=== PATIENT | male | born 1960 | race Caucasian/White ===

== ENCOUNTER → 2021-09-08 | Outpatient (CLI) | payer OTHER ==
[~2021-09-08] MED LIST: CATHETER FLUSH 10 ML SYR IV PRN; FAMO-119 PO; HOLD METFORMIN - RECEIVED CONTRAST 20 ML VIAL IV SCH; IOHEXOL 350 MG/ML 100 ML (OMNIPAQUE 350) VIAL IV ONE; NS 100 ML (IVPB) BAG IV ONE
--- NOTE | 2021-09-08 12:44 | Diagnostic Imaging Report ---
PROCEDURE: CT abdomen and pelvis with contrast. TECHNIQUE: Multiple contiguous axial images were obtained through the abdomen and pelvis after administration of intravenous contrast. Auto Exposure Controls were utilized during the CT exam to meet ALARA standards for radiation dose reduction. All CT scans use one or more of the following dose optimizing techniques: automated exposure control, MA and/or KvP adjustment based on patient size and exam type or iterative reconstruction. INDICATION: Abscess. COMPARISON: I have no relevant comparison. FINDINGS: A pigtail catheter is in good position within the central portion of a large loculated gas/fluid collection interlooped within the mid pelvis. It measures about 13 cm transverse by 11 cm AP with a cephalocaudal height of 7.3 cm. Its content is about two/thirds air and one/third fluid. Deep to the supraumbilical abdominal wall, there is a second drain which is associated with a predominant gas collection. At its inferior aspect, there is a trace amount of fluid and bubbles of air. This is interposed between the abdominal wall and adjacent unobstructed mildly thickened small bowel. The estimated fluid volume residual within this collection is probably only 1 to 2 cc and the largely gas-containing locule is 7 cm transverse with a maximal AP thickness of 2 cm. There is an internal/external biliary drainage catheter distally formed in the lumen of the proximal duodenum. Its presence likely allows for air reflux into the gallbladder lumen. The gallbladder wall is non-thickened. There is no significant residual intrahepatic biliary ductal dilatation. No appreciable choledocholithiasis along the course of the stent. The atrophic pancreas appears nonfocal and nonacute. The kidneys are unobstructed. There is an IVC filter below the renal veins without venous thrombus demonstrated. There is some diffuse integumentary and subcutaneous edema. There is some diverticulosis of the sigmoid colon with regional inflammation. It is unclear if this is secondarily inflamed from the adjacent abscess or if there is underlying diverticulitis. Aside from the collections associated with the drains, no other fluid collection is found. There is a trace amount of free fluid in the left upper gutter lateral to the nonfocal spleen. This patient has bibasilar pleural effusions layering dependently to a depth of 5.5 cm with subjacent dependent basilar atelectasis. IMPRESSION: 1. Abdominopelvic gas/fluid collections with internal surgical drains. The cephalad collection has only a minimal amount of residual fluid and is nearly entirely comprised of an air locule. The more caudal is about one/third fluid and two/thirds air with a substantial residual fluid load within that collection present. 2. Sigmoid diverticulosis. There is regional bowel wall thickening and perisigmoidal stranding. It is unclear if there is primary diverticulitis present or if this is secondarily inflamed. No bowel obstruction. 3. Internal/external biliary drainage catheter with no visualized choledocholithiasis or significant bile duct dilatation. 4. Bibasilar pleural effusions and dependent atelectasis without evidence for basilar pleural fluid loculation. 5. Trace free fluid in the left upper quadrant. Dictated by: Dictated on workstation # [id number]
== END ==
LOC: RAD 09:45
PROVIDERS: ATTEND Surgery
DX: Z48.03 Encounter for change or removal of drains (principal); K57.30 Diverticulosis of large intestine without perforation or abscess without bleeding; J90 Pleural effusion, not elsewhere classified
CPT/HCPCS: 74177

== ENCOUNTER 2021-09-11 12:43 | Emergency (ER) | payer OTHER ==
[~2021-09-11] VITALS: Ht 180 cm; Wt 91.0 kg
[2021-09-11] MEDS ORDERED: FAMOTIDINE 20MG/2ML IV (PEPCID) IVP ONE (13:45)
[2021-09-11] MEDS ORDERED: FAMO-119 PO (13:52)
--- NOTE | 2021-09-11 13:52 | ED Integumentary General ---
General Chief Complaint: Allergic Reaction Stated Complaint: HIVES Nursing Triage Note: PT TO ED 4 W/ C/O HIVES ONSET 09/09. DENIES KNOWN IRRITANT. STATES DID HAVE CT W/ CONTRAST MONDAY. PT ALSO REPORTS GETTING IV ZOSYN ET DIFLUCAN DAILY. NO OTHER C/O VOICED. DENIES SOB, TONGUE SWELLING, DIFFICULTY BREATHING AT THIS TIME. Source: patient Exam Limitations: no limitations History of Present Illness Date Seen by Provider: Sep 11, 2021 Allergies and Home Medications Allergies Coded Allergies: No Allergy Information Available (Unverified , 09/08/21) Past Ngtlodj-Iwuerc-Iszvfe Hx Patient Social History Tobacco Use?: No Use of E-Cig and/or Vaping dev: No Substance use?: No Pt feels they are or have been: No Past Medical History Surgery/Hospitalization HX: ABD SURGERY, ULCERATIVE COLITIS, COPD Physical Exam Vital Signs Vital Signs - First Documented 09/11/21 12:47 Temp 36.0 Pulse 119 Resp 20 B/P (MAP) 124/93 (103) O2 Delivery Room Air Capillary Refill : Less Than 3 Seconds Progress/Results/Core Measures Results/Orders My Orders Orders - ALAYNA HOOKER APRN Dexamethasone Injection (Decadron Inje (09/11/21 13:00) Famotidine Injection (Pepcid Injection) (09/11/21 13:45) Medications Given in ED Current Medications Medications Dose Ordered Sig/Elizabeth Route Start Time Stop Time Status Last Admin Dose Admin Dexamethasone Sodium Phosphate 10 mg ONCE ONCE IV 09/11/21 13:00 09/11/21 13:02 DC 09/11/21 13:24 10 MG Vital Signs/I&O 09/11/21 12:47 Temp 36.0 Pulse 119 Resp 20 B/P (MAP) 124/93 (103) O2 Delivery Room Air Blood Pressure Mean: 103 Departure Impression Primary Impression: Urticaria Disposition: SNF Condition: Stable Departure-Patient Inst. Decision time for Depature: 13:48 Referrals: HALLE SANTACRUZ MD (PCP/Family) Primary Care Physician Patient Instructions: Hives Add. Discharge Instructions: Plan: 1. Give Pepcid 20mg by mouth twice daily. 2. Benadryl every 4-6 hours as needed for itching/hives. 3. Keep follow up at on Monday as scheduled. 4. Given one dose of Decadron in ED. Will defer steroid use due to recent taper. 5. Use incentive spirometer every 4 hours. 6. Return for any new, concerning, or worsening symptoms. All discharge instructions reviewed with patient and/or family. Voiced understanding. Scripts Famotidine (Pepcid) 20 Mg Tablet 20 MG PO BID for 14 Days, #7 TAB 0 Refills Prov: ALAYNA HOOKER NEWS PRODUCTION ASSISTANT 09/11/21 ALAYNA HOOKER APRN Sep 11, 2021 13:52
[2021-09-11 14:15] VITALS: BP 121/86
== END 2021-09-11 14:15 ==
LOC: EDUNIT# 12:43 → ER 12:45
DX: L50.9 Urticaria, unspecified (principal)
CPT/HCPCS: 99281

== ENCOUNTER → 2021-10-12 | Outpatient (CLI) | payer OTHER ==
[~2021-10-12] MED LIST changes: -CATHETER FLUSH 10 ML SYR IV PRN; -HOLD METFORMIN - RECEIVED CONTRAST 20 ML VIAL IV SCH; -IOHEXOL 350 MG/ML 100 ML (OMNIPAQUE 350) VIAL IV ONE; -NS 100 ML (IVPB) BAG IV ONE
--- NOTE | 2021-10-12 14:33 | Diagnostic Imaging Report ---
EXAMINATION: CT abdomen and pelvis without contrast. TECHNIQUE: Multiple contiguous axial images were obtained through the abdomen and pelvis without the use of intravenous contrast. All CT scans use one or more of the following dose optimizing techniques: automated exposure control, MA and/or KvP adjustment based on patient size and exam type or iterative reconstruction. HISTORY: History of perforated bowel. COMPARISON: 09/08/2021. FINDINGS: Lung bases: There are bilateral pleural effusions with adjacent atelectasis or consolidation. Solid organs: Diffuse hypoattenuation of the liver which can be seen with hepatic steatosis. Multiple stones are seen within the gallbladder. Air is also seen within the gallbladder. There is no biliary ductal dilation. Pancreas is normal. Spleen is normal. Adrenal glands are normal. The kidneys are normal without visualized calculus or hydronephrosis. Bowel: The stomach and small bowel are normal without obstruction. There is wall thickening and inflammatory stranding seen throughout the colon. The appendix is normal. Peritoneum: A percutaneous drainage catheter is seen within the lower abdomen. Minimal fluid is seen on today's exam without obvious fluid collection. Evaluation is limited secondary to lack of IV or oral contrast. No suspicious lymphadenopathy. Vasculature: Calcification of the aorta without aneurysm. An IVC filter is present. Musculoskeletal: Degenerative changes of the spine without suspicious osseous lesion or compression fracture. Pelvis: The prostate gland is normal. The urinary bladder is normal. IMPRESSION: 1. Decreased fluid within the lower abdomen with percutaneous drainage catheter in place. Evaluation for residual fluid is limited without IV or oral contrast. 2. Diffuse wall thickening and inflammatory stranding of the colon which is concerning for an infectious or inflammatory pancolitis. 3. Hepatic steatosis. 4. Bilateral pleural effusions with adjacent atelectasis or consolidation. Dictated by: Dictated on workstation # [id number]
== END ==
LOC: RAD 13:45
PROVIDERS: ATTEND Surgery
DX: K76.0 Fatty (change of) liver, not elsewhere classified (principal); J90 Pleural effusion, not elsewhere classified; K66.8 Other specified disorders of peritoneum
CPT/HCPCS: 74176

== ENCOUNTER 2021-10-27 10:50 | Emergency (ER) | payer OTHER ==
[~2021-10-27] VITALS: Ht 187 cm; Wt 73.0 kg
[2021-10-27] MEDS ORDERED: NS IV 1000 ML 1,000 ML IV STA (11:18)
[2021-10-27] MEDS ORDERED: PIPERACILLIN SODIUM/TAZOBACTAM 4.5 GM in NS (IVPB) 100 ML IV ONE (11:30)
--- NOTE | 2021-10-27 11:34 | ED Abdominal Pain ---
General Chief Complaint: Abdominal/GI Problems Stated Complaint: ABD PAIN Nursing Triage Note: PT ARRIVED PER EMS FROM [facility], PT HAS HAD NUMEROUS ABD SURGERIES SINCE 06/15. PT HAD DRAIN PULLED FROM ABD ON 10/26, WOUND IS LEAKING BM AT THIS X. PT CO OF PAIN @ 03/05. Source of Information: Patient Exam Limitations: No Limitations History of Present Illness Date Seen by Provider: October 27, 2021 Time Seen by Provider: 11:30 Initial Comments Patient is a 61-year-old male with a history of COPD, ulcerative colitis who presents ED with generalized abdominal pain with bile draining from his abdominal surgical site today. Patient had a draining tube removed this past Monday at [facility]. Patient currently being managed by Eulogio worthy surgeon at [facility]. Patient had 4 draining tubes removed secondary to a perforated bowel this July and was treated at [facility] after being transferred from [facility] secondary to complications from upper EGD. Patient was noted to have ulcers in his abdomen and esophagus at that time. Patient states he has generalized belly pain but this has been constant since the surgery. Patient is concerned for stool coming from his surgical site as well as his rectum. Denies of any vomiting, chest pain, shortness of breath, headache, fever, chills. Patient is tachycardic and slightly hypotensive on arrival. Patient denies of any bloody stools. Patient follows up with Dr. Espinosa GI specialist in [facility]. Patient takes Humira for ulcerative colitis Allergies and Home Medications Allergies Coded Allergies: No Allergy Information Available (Unverified , 09/08/21) Patient Home Medication List Home Medication List Reviewed: Yes Famotidine (Pepcid) 20 Mg Tablet, 20 MG PO BID Prescribed by: ALAYNA HOOKER on 09/11/21 [id number] Review of Systems Review of Systems Constitutional: No chills, No diaphoresis, No malaise, No weakness EENTM: No Blurred Vision, No Double Vision, No Eye Pain Respiratory: Denies Cough, Denies Orthopnea, Denies Shortness of Air, Denies SOA With Exertion, Denies SOA at Rest Cardiovascular: Denies Chest Pain, Denies Edema Gastrointestinal: Abdominal Pain; Denies Blood Streaked Stools; Diarrhea; Denies Poor Fluid Intake, Denies Rectal Bleeding, Denies Vomiting, Denies Other Musculoskeletal: No back pain, No joint pain Skin: No change in color, No change in hair/nails All Other Systems Reviewed Negative Unless Noted: Yes Past Toxqrre-Hlxjsv-Imapdz Hx Past Medical History Surgery/Hospitalization HX: ABD SURGERY, ULCERATIVE COLITIS, COPD Physical Exam Vital Signs Vital Signs - First Documented 10/27/21 10/27/21 10:50 18:55 Temp 36.2 Pulse 115 Resp 22 B/P (MAP) 85/67 (73) Pulse Ox 100 Capillary Refill : Less Than 3 Seconds Height/Weight/BMI Height: '" Weight: lbs. oz. kg; 20.00 BMI Method: General Appearance: WD/WN, no apparent distress HEENT: PERRL/EOMI, normal ENT inspection, TMs normal, pharynx normal Neck: non-tender, full range of motion, supple, normal inspection Respiratory: chest non-tender, lungs clear, normal breath sounds, no res piratory distress Cardiovascular: regular rate, rhythm, no edema, no gallop, no JVD Gastrointestinal: other (Stool noted from the stoma from the abdomen. Bile noted. Generalized tenderness.) Extremities: normal range of motion, non-tender, normal inspection, no pedal edema, no calf tenderness Back: normal inspection, no CVA tenderness Focused Exam Lactate Level 10/27/21 11:05: Lactic Acid Level 1.26 Lactic Acid Level Laboratory Tests Test 10/27/21 11:05 Lactic Acid Level 1.26 MMOL/L (0.50-2.00) Progress/Results/Core Measures Results/Orders Lab Results Laboratory Tests Test 10/27/21 11:05 10/27/21 13:50 Range/Units White Blood Count 15.4 H 4.3-11.0 10^3/uL Red Blood Count 4.02 L 4.30-5.52 10^6/uL Hemoglobin 10.7 L 13.3-17.7 g/dL Hematocrit 33 L 40-54 % Mean Corpuscular Volume 82 80-99 fL Mean Corpuscular Hemoglobin 27 25-34 pg Mean Corpuscular Hemoglobin Concent 33 32-36 g/dL Red Cell Distribution Width 19.7 H 10.0-14.5 % Platelet Count 534 H 130-400 10^3/uL Mean Platelet Volume 8.2 L 9.0-12.2 fL Immature Granulocyte % (Auto) 1 % Neutrophils (%) (Auto) 83 H 42-75 % Lymphocytes (%) (Auto) 7 L 12-44 % Monocytes (%) (Auto) 9 0-12 % Eosinophils (%) (Auto) 0 0-10 % Basophils (%) (Auto) 1 0-10 % Neutrophils # (Auto) 12.8 H 1.8-7.8 10^3/uL Lymphocytes # (Auto) 1.0 1.0-4.0 10^3/uL Monocytes # (Auto) 1.4 H 0.0-1.0 10^3/uL Eosinophils # (Auto) 0.0 0.0-0.3 10^3/uL Basophils # (Auto) 0.1 0.0-0.1 10^3/uL Immature Granulocyte # (Auto) 0.1 0.0-0.1 10^3/uL Neutrophils % (Manual) 59 % Lymphocytes % (Manual) 12 % Monocytes % (Manual) 8 % Band Neutrophils 21 % Blood Morphology Comment NORMAL Prothrombin Time 17.8 H 12.2-14.7 SEC INR Comment 1.4 0.8-1.4 Activated Partial Thromboplast Time 52 H 24-35 SEC Sodium Level 132 L 135-145 MMOL/L Potassium Level 4.0 3.6-5.0 MMOL/L Chloride Level 99 98-107 MMOL/L Carbon Dioxide Level 23 21-32 MMOL/L Anion Gap 10 5-14 MMOL/L Blood Urea Nitrogen 7 7-18 MG/DL Creatinine 0.58 L 0.60-1.30 MG/DL Estimat Glomerular Filtration Rate 112 BUN/Creatinine Ratio 12 Glucose Level 113 H 70-105 MG/DL Lactic Acid Level 1.26 0.50-2.00 MMOL/L Calcium Level 7.6 L 8.5-10.1 MG/DL Corrected Calcium 9.3 8.5-10.1 MG/DL Total Bilirubin 0.3 0.1-1.0 MG/DL Aspartate Amino Transf (AST/SGOT) 19 5-34 U/L Alanine Aminotransferase (ALT/SGPT) 14 0-55 U/L Alkaline Phosphatase 370 H 40-136 U/L Total Protein 5.4 L 6.4-8.2 GM/DL Albumin 1.9 L 3.2-4.5 GM/DL Urine Color YELLOW Urine Clarity CLOUDY Urine pH 7.0 5-9 Urine Specific [place] 1.010 L 1.016-1.022 Urine Protein 2+ H NEGATIVE Urine Glucose (UA) NEGATIVE NEGATIVE Urine Ketones TRACE H NEGATIVE Urine Nitrite NEGATIVE NEGATIVE Urine Bilirubin NEGATIVE NEGATIVE Urine Urobilinogen 0.2 < = 1.0 MG/DL Urine Leukocyte Esterase 2+ H NEGATIVE Urine RBC (Auto) 2+ H NEGATIVE Urine RBC 10-25 H /HPF Urine WBC TNTC H /HPF Urine Squamous Epithelial Cells NONE /HPF Urine Crystals PRESENT H /LPF Urine Calcium Oxalate Crystals FEW H /LPF Urine Bacteria LARGE H /HPF Urine Casts NONE /LPF Urine Mucus NEGATIVE /LPF Urine Culture Indicated NO My Orders Orders - ADRIANO THOMPSON Ns Iv 1000 Ml (Sodium Chloride 0.9%) (10/27/21 11:18) Cbc With Automated Diff (10/27/21 11:28) Comprehensive Metabolic Panel (10/27/21 11:28) Blood Culture (10/27/21 11:28) Urinalysis (10/27/21 11:28) Urine Culture (10/27/21 11:28) Protime With Inr (10/27/21 11:28) Partial Thromboplastin Time (10/27/21 11:28) Chest 1 View, Ap/Pa Only (10/27/21 11:28) Ed Iv/Invasive Line Start (10/27/21 11:28) Ed Iv/Invasive Line Start (10/27/21 11:28) Vital Signs Adult Sepsis Patie Q15M (10/27/21 11:28) Lactic Acid Analyzer (10/27/21 11:28) Piperacillin Sodium/Tazobactam (Zosyn Vi (10/27/21 11:30) Ct Abdomen/Pelvis W (10/27/21 11:28) Manual Differential (10/27/21 11:05) Diphenhydramine Injection (Benadryl Inje (10/27/21 12:00) Iohexol Injection (Omnipaque 350 Mg/Ml 1 (10/27/21 12:00) Received Contrast (Hold Metformin- Contr (10/27/21 12:00) Sodium Chloride Flush (Catheter Flush Sy (10/27/21 12:00) Ns (Ivpb) (Sodium Chloride 0.9% Ivpb Bag (10/27/21 12:00) Fentanyl Inj (Sublimaze Injection) (10/27/21 15:27) Lactated Ringers (Lr 1000 Ml Iv Solution (10/27/21 17:02) Lorazepam Injection (Ativan Injection) (10/27/21 18:45) Medications Given in ED Current Medications Medications Dose Ordered Sig/Elizabeth Route Start Time Stop Time Status Last Admin Dose Admin Diphenhydramine HCl 25 mg ONCE ONCE IVP 10/27/21 12:00 10/27/21 12:01 DC 10/27/21 12:05 25 MG Iohexol 100 ml ONCE ONCE IV 10/27/21 12:00 10/27/21 12:01 DC 10/27/21 12:17 92 ML Lorazepam 1 mg ONCE ONCE IVP 10/27/21 18:45 10/27/21 18:46 DC 10/27/21 19:06 1 MG Piperacillin Sod/ Tazobactam Sod 4.5 gm/Sodium Chloride 100 ml @ 200 mls/hr ONCE ONCE IV 10/27/21 11:30 10/27/21 11:59 DC 10/27/21 12:20 200 MLS/HR Sodium Chloride 10 ml NEEDED PRN IV 10/27/21 12:00 10/27/21 19:11 DC 10/27/21 12:17 10 ML Sodium Chloride 100 ml ONCE ONCE IV 10/27/21 12:00 10/27/21 12:01 DC 10/27/21 12:17 80 ML Vital Signs/I&O 10/27/21 10/27/21 10:50 18:55 Temp 36.2 Pulse 115 117 Resp 22 B/P (MAP) 85/67 (73) 100/74 Pulse Ox 100 Blood Pressure Mean: 73 Departure Communication (PCP) Patient with a increasing size fluid collection with gas 3.6 x 8.1 cm in the pelvic inlet with radiation to left upper quadrant with fistulization of the colon. Stool noted from the surgical site of the abdomen were the previous drained was removed on monday. Patient was slightly hypotensive. Maintaining a MAP above 65. Patient was given a liter of fluid and contniue to have a blood pressure around 100 systolic and 76 diastolic. Remained a map above 65. Patient remained tachycardic around 115 bpm. Patient denies headache, chest pain, shortness of breath. Patient was afebrile. Was given a dose of Zosyn. Chest x-ray negative for pneumonia. Elevated white blood count of 15. Normal lactic acid. Slightly dehydrated. Hemoglobin 10.7. Blood cultures pending. Denies of any dark tarry stool or bloody stool. Patient continue having stool coming from his anus and surgical site on the abdomen. Patient was discussed with [facility] who accepts patient for transfer. Patient will be accepted by Eulogio Villalta. Patient agrees with transfer. Patient was given Benadryl for nausea. Only had 1 vehicle for transport to [facility]. Called surrounding EMS transport was not able to provide any type of resources for transport. Patient continued to stay in our ER. Patient maintained a blood pressure near 100 systolic. Patient was given dose of fentanyl. Patient otherwise had no current complaints. Continue to maintain a MAP of 65. Looked at previous lab work and vital signs from [facility] last week that showed a blood pressure around 105 systolic. He states he typically has a softer blood pressure. Continue to monitor and intervene as needed. Patient neuro exam unremarkable. Patient states he has some mild abdominal discomfort. Urinalysis concerning for potential infectious etiology as well. Patient was transported around 7:30 PM. Patient currently stable. Impression Primary Impression: Colonic fistula Disposition: T-[facility] Condition: Stable Transfer Transfer Reason: Exceeds level of care Time Spoke to Accepting Phy: 13:15 Transfer Time: 13:15 Transfer Facility: [facility] Method of Transfer: EMS Departure-Patient Inst. Decision time for Depature: 13:14 Referrals: NO,LOCAL PHYSICIAN (PCP/Family) Primary Care Physician ADRIANO THOMPSON October 27, 2021 11:34
[2021-10-27 11:39] LABS: BASOPHILS # (AUTO) 0.1 10^3/uL (0.0-0.1); BASOPHILS % (AUTO) 1 % (0-10); EOSINOPHILS % (AUTO) 0 % (0-10); HEMATOCRIT 33 % (40-54); HEMOGLOBIN 10.7 g/dL (13.3-17.7); LYMPHOCYTES % (AUTO) 7 % (12-44); MEAN CORPUSCULAR HEMOGLOBIN 27 pg (25-34); MEAN CORPUSCULAR HGB CONC 33 g/dL (32-36); MEAN CORPUSCULAR VOLUME 82 fL (80-99); MEAN PLATELET VOLUME 8.2 fL (9.0-12.2); MONOCYTES # (AUTO) 1.4 10^3/uL (0.0-1.0); MONOCYTES % (AUTO) 9 % (0-12); NEUTROPHILS # (AUTO) 12.8 10^3/uL (1.8-7.8); NEUTROPHILS % (AUTO) 83 % (42-75); PLATELET COUNT 534 10^3/uL (130-400); WHITE BLOOD COUNT 15.4 10^3/uL (4.3-11.0)
[2021-10-27 11:40] LABS: ALBUMIN 1.9 GM/DL (3.2-4.5)
[2021-10-27 11:42] LABS: CALCIUM 7.6 MG/DL (8.5-10.1)
[2021-10-27 11:43] LABS: TOTAL PROTEIN 5.4 GM/DL (6.4-8.2)
[2021-10-27 11:44] LABS: INR 1.4 (0.8-1.4); PROTHROMBIN TIME PATIENT 17.8 SEC (12.2-14.7)
[2021-10-27 11:45] LABS: BILIRUBIN,TOTAL 0.3 MG/DL (0.1-1.0)
[2021-10-27 11:46] LABS: CREATININE SERUM 0.58 MG/DL (0.60-1.30)
[2021-10-27] MEDS ORDERED: IOHEXOL 350 MG/ML 100 ML (OMNIPAQUE 350) VIAL IV ONE (12:00)
[2021-10-27] MEDS ORDERED: HOLD METFORMIN - RECEIVED CONTRAST 20 ML VIAL IV SCH (12:00)
[2021-10-27] MEDS ORDERED: CATHETER FLUSH 10 ML SYR IV PRN (12:00)
[2021-10-27] MEDS ORDERED: diphenhydrAMINE 50 MG/ML INJ (BENADRYL) IVP ONE (12:00)
[2021-10-27] MEDS ORDERED: NS 100 ML (IVPB) BAG IV ONE (12:00)
[2021-10-27 12:11] LABS: BAND NEUTROPHILS 21 %; LYMPHOCYTES % (MANUAL) 12 %; MONOCYTES % (MANUAL) 8 %; NEUTROPHILS % (MANUAL) 59 %; RBC MORPH NORMAL
--- NOTE | 2021-10-27 12:17 | Diagnostic Imaging Report ---
INDICATION: Cough. EXAMINATION: Chest from 10/27/2021. FINDINGS: Single-view chest. There is coarsened interstitial change in the right mid and lower lung, likely atelectasis versus scar. There are no infiltrates. There is no pneumothorax. Heart and pulmonary vasculature are normal. IMPRESSION: 1. Scar versus atelectasis within the right mid and lower lung. Dictated by: Dictated on workstation # [id number]
--- NOTE | 2021-10-27 12:33 | Diagnostic Imaging Report ---
EXAMINATION: CT abdomen and pelvis with intravenous contrast. TECHNIQUE: Multiple contiguous axial images were obtained through the abdomen and pelvis after the uneventful administration of intravenous contrast. All CT scans use one or more of the following dose optimizing techniques: automated exposure control, MA and/or KvP adjustment based on patient size and exam type or iterative reconstruction. HISTORY: Abdominal pain COMPARISON: 10/12/2009 FINDINGS: Limited views of the lower thorax show small bilateral pleural effusions. There is mild basilar atelectasis. Liver is steatotic. No suspicious liver lesions are seen. There is no biliary ductal dilation. There is unchanged gas in the gallbladder with a few gallstones present. There is an endoscopically placed device in the duodenum, possibly a clip. Pancreas is normal. Spleen is normal. There is a 2.1 cm left adrenal nodule, unchanged from prior exam. The previously noted low attenuation consistent with an adenoma. The kidneys are normal. There is no hydronephrosis. Urinary bladder is normal. There is a gas and fluid collection at the pelvic inlet measuring 3.6 x 8.1 cm. It extends into the left upper quadrant. Drain has been removed. Previously the collection was mostly collapsed. There is mild wall thickening of the colon which is improved slightly from prior exam. An inferior vena cava filter is present. No free fluid or air. No abdominal or pelvic lymphadenopathy. Aorta is normal in caliber without aneurysm. There are no suspicious osseus lesions. IMPRESSION: 1. Increase in size of fluid collection pelvic inlet containing fluid and gas consistent with fistulization the colon. 2. Improved wall thickening of the colon consistent with colitis. 3. Steatotic liver. Dictated by: Dictated on workstation # [id number]
[2021-10-27 13:58] LABS: BILIRUBIN,URINE NEGATIVE (NEGATIVE); CLARITY,URINE CLOUDY; COLOR,URINE YELLOW; GLUCOSE, URINE (UA) NEGATIVE (NEGATIVE); KETONES,URINE TRACE (NEGATIVE); LEUKOCYTE ESTERASE ,URINE 2+ (NEGATIVE); NITRITE,URINE NEGATIVE (NEGATIVE); PROTEIN,URINE 2+ (NEGATIVE)
[2021-10-27 14:27] LABS: BACTERIA,URINE LARGE /HPF; WBC,URINE TNTC /HPF
[2021-10-27 14:28] LABS: CALCIUM OXALATE CRYSTALS,UR FEW /LPF
[2021-10-27] MEDS ORDERED: fentaNYL INJ 100 MCG/2 ML AMP IVP STA (15:27)
[2021-10-27] MEDS ORDERED: LACTATED RINGERS 1,000 ML IV STA (17:02)
[2021-10-27] MEDS ORDERED: LORazepam INJ 2 MG/ML (ATIVAN) VIAL IVP ONE (18:45)
[2021-10-27 18:55] VITALS: BP 100/74
== END 2021-10-27 19:11 | disposition short-term general hospital (02) ==
LOC: EDUNIT# 10:50 → ER 10:52
DX: K63.2 Fistula of intestine (principal); Z98.890 Other specified postprocedural states
CPT/HCPCS: 36415; 71045; 74177; 80053; 81000; 83605; 85007; 85027; 85610; 85730; 87040; 87088